=== PATIENT | male | born 1995 | race Caucasian/White ===

== ENCOUNTER 2017-08-13 04:04 | Emergency (ER) | payer MEDICAID ==
[~2017-08-13] VITALS: Ht 175.3 cm; Wt 91.0 kg
[2017-08-13] MEDS ORDERED: KETOROLAC 30MG/ML VIAL IV STA (05:06)
[2017-08-13] MEDS ORDERED: SODIUM CHLORIDE 0.9% 1,000 ML IV ONE (05:06)
[2017-08-13] MEDS ORDERED: ONDANSETRON HCL 4MG/2ML VIAL IV ONE (05:30)
[2017-08-13 05:35] LABS: BASOPHILS % 0.9 % (0.0-2.0); EOSINOPHILS % 5.4 % (0.0-5.0); HEMATOCRIT. 41.4 % (42.0-52.0); HEMOGLOBIN. 14.2 g/dL (14.0-18.0); LYMPHOCYTES % 28.2 % (20.0-50.0); MEAN CORPUSCULAR HEMOGLOBIN 30.1 pg (28.0-32.0); MEAN PLATELET VOLUME 8.9 fl (7.4-10.4); MONOCYTES % 13.3 % (2.0-8.0); NEUTROPHILS % 52.2 % (40.0-76.0); PLATELET 353 x1000/uL (130-400); RED CELL DISTRIBUTION WIDTH 12.5 % (11.6-14.6)
[2017-08-13 05:41] LABS: PROTHROMBIN TIME 10.5 sec (9.4-11.6)
[2017-08-13 05:52] LABS: CHLORIDE 103 mEq/L (98-107)
[2017-08-13 06:22] LABS: CLARITY URINE CLEAR (CLEAR); COLOR URINE YELLOW (YELLOW); KETONES URINE NEGATIVE (NEGATIVE); LEUKOCYTE ESTERASE URINE NEGATIVE (NEGATIVE); NITRITE URINE NEGATIVE (NEGATIVE); OCCULT BLOOD URINE NEGATIVE (NEGATIVE); PH URINE 5.5 (4.5-8.0); PROTEIN URINE NEGATIVE (NEGATIVE); SPECIFIC GRAVITY URINE 1.018 (1.005-1.030); UROBILINOGEN URINE 0.2 E.U./dL (0.2-1.0)
[2017-08-13 08:09] VITALS: BP 114/58
== END 2017-08-13 08:10 | disposition home or self-care (01) ==
LOC: ER 04:04
DX: K76.0 Fatty (change of) liver, not elsewhere classified (principal); K80.70 Calculus of gallbladder and bile duct without cholecystitis without obstruction; I10 Essential (primary) hypertension; E66.9 Obesity, unspecified; R07.9 Chest pain, unspecified
CPT/HCPCS: 36415; 71045; 76705; 80053; 81003; 83690; 85025; 85610; 93005; 96361; 96374; 96375; 99285; J1885; J2405; J7030